=== PATIENT | female | born 1940 | race Caucasian/White ===

== ENCOUNTER 2024-04-01 18:10 | Emergency (ER) | payer BC, SELFPAY ==
--- NOTE | 2024-04-01 18:13 | ED.GENADULT ---
HPI - General Adult General Chief complaint: Cough Stated complaint: respiratory infection Time Seen by Provider: 04/01/24 18:14 History of Present Illness HPI narrative: Pt states she has mucous buildup and fluid in her chest. Pt went to the clinic today and they recommended being seen in the ER. Pt states she has a productive cough with green tinged sputum, and has been fatigued. Pt has taken mucinex and felt it helped slightly. 83-year-old woman presenting to the emergency department with concern of cough and shortness of breath. Was seen initially in Urgent Care recommended to be evaluated in the emergency department due to persistent dyspnea. Did receive a DuoNeb there. Chest x-ray was done as well and absent any infiltrative process or other indication of cardiopulmonary disease. Has been sick about a week. Describes what I think are jags of coughing and thick mucus. Has been taking Mucinex and may have helped a little bit. She did measure a ?fever? up to 100 last a few days ago. Admittedly she is worse today than she was a couple days ago. Denies a history of heart failure or asthma/reactive airway or COPD. Remote smoking. No particular exposures. Does not look as though has been swabbed for COVID. Related Data Home Medications ?Medication ?Instructions ?Recorded ?Confirmed amlodipine 10 mg tablet 10 mg PO DAILY 04/01/24 04/01/24 apixaban 2.5 mg tablet (Eliquis) 2.5 mg PO BID 04/01/24 04/01/24 rosuvastatin 20 mg tablet 20 mg PO QPM 04/01/24 04/01/24 sertraline 100 mg tablet 100 mg PO BID 04/01/24 04/01/24 trazodone 100 mg tablet 100 mg PO QPM 04/01/24 04/01/24 Previous Rx's ?Medication ?Instructions ?Recorded prednisone 20 mg tablet 40 mg (2 x 20 mg) PO DAILY 5 days 04/01/24 #10 tabs Allergies Allergy/AdvReac Type Severity Reaction Status Date / Time No Known Drug Allergies Allergy Verified 04/01/24 14:44 Review of Systems Status of ROS: Reports: 6 or more systems reviewed and unremarkable except as noted in History and below PFSH PFSH Social History Smoking Status: Former smoker What tobacco products do you use: cigarettes Smoking quit date/years: >15 years ago How often do you have a drink containing alcohol: 4 or more times a week AUDIT-C Alcohol total score: 4 Non-prescribed substance use: denies use Exam Narrative: Exam Narrative: Pleasant. NAD. Seems a little frustrated. Vaguely laryngitic. No stridor. Breathing easily. Little congested in the nasopharynx. Lungs with some trace left upper chest crepitus. Heart in regular rate and rhythm. Extremities are well perfused without edema. Const: Vital Signs, click to edit/add: Vital Signs - 24 hr 04/01/24 18:18 Temperature 97.2 F L Pulse Rate [Left] 81 Respiratory Rate 18 Blood Pressure [Ri ght Upper Arm] 126/85 Pulse Oximetry 94 Oxygen Delivery Me thod Room Air Documenting provider has reviewed patient's vital signs: yes Course Vital Signs Vital signs: Initial Vital Signs Temperature 97.2 F L 04/01/24 18:18 Temperature Source Temporal Artery Scan 04/01/24 18:18 Pulse Rate 81 04/01/24 18:18 Respiratory Rate 18 04/01/24 18:18 Blood Pressure 126/85 04/01/24 18:18 Blood Pressure Mean 98 04/01/24 18:18 Blood Pressure Position Sitting 04/01/24 18:18 Pulse Oximetry 94 04/01/24 18:18 Oxygen Delivery Method Room Air 04/01/24 18:18 Vital Signs Temperature 97.2 F L 04/01/24 18:18 Pulse Rate 81 04/01/24 18:18 Respiratory Rate 18 04/01/24 18:18 Blood Pressure 126/85 04/01/24 18:18 Pulse Oximetry 94 04/01/24 18:18 Oxygen Delivery Method Room Air 04/01/24 18:18 Temperature 97.2 F L 04/01/24 18:18 Pulse Rate 68 04/01/24 19:57 Respiratory Rate 16 04/01/24 19:57 Blood Pressure 149/90 H 04/01/24 19:57 Pulse Oximetry 96 04/01/24 19:57 Oxygen Delivery Method Room Air 04/01/24 19:57 Medical Decision Making MDM Narrative Medical decision making narrative: Seems to be having a slowly resolving URI. She is frustrated. I think has been describing some jags of coughing. Try to decongest. Can certainly look for pneumonia with chest x-ray. Otherwise screen for COVID, influenza. Would give some ice chips. Consider anesthetic spray. Chest x-ray reviewed by me looks to be without infiltrate. Radiology over-read as below Two view(s) of the chest. Comparison: None available. Findings: Normal size of the cardiac silhouette. Tortuous descending thoracic aorta with mild atherosclerotic calcifications. Lungs are well inflated. No focal consolidation. No pleural effusion or pneumothorax. No acute osseous abnormality identified. Chronic appearing mild superior endplate compression deformity of an upper lumbar vertebral body, likely L2. Impression: No acute cardiopulmonary abnormality identified. Swabs are negative Overall well during time in the ER. She was anxious to leave. See patient discharge plan for further discussion Medical Records Medical records reviewed: Yes I reviewed the patient's medical records Lab Data Lab results reviewed: Yes I reviewed the patient's lab results Labs: Lab Results 04/01/24 Range/Units 18:35 SARS-CoV-2 (PCR) Negative SARS-CoV-2 (Negative) Influenza Type A (PCR) Negative PCR FLU A (Negative) Influenza Type B (PCR) Negative PCR FLU B (Negative) RSV (PCR) Negative PCR RSV (Negative) Discharge Plan Discharge Clinical Impression: Cough, URI (upper respiratory infection) Patient Disposition: Home, Self-Care Condition: Improved Additional Instructions: Continue to focus on hydration. Sleep with head of bed elevated/recliner. I think some of your cough is caused by postnasal drip. With that in mind might benefit from pseudoephedrine as a decongestant. This is available [id number]. Menthol vapors might be helpful. Sucking on ice chips can help with that irritation that can contribute to jags of coughing. Consider also anesthetic throat sprays or lozenges like Chloraseptic or Sucrets. Will be prescribing prednisone from [facility]. This is the anti-inflammatory I was talking about that might decrease your ?muck production. Prescriptions: New prednisone 20 mg tablet 40 mg PO DAILY 5 Days Qty: 10 0RF No Action sertraline 100 mg tablet 100 mg PO BID amlodipine 10 mg tablet 10 mg PO DAILY rosuvastatin 20 mg tablet 20 mg PO QPM trazodone 100 mg tablet 100 mg PO QPM Eliquis 2.5 mg tablet 2.5 mg PO BID Follow Up/Referrals: Provider,Not a Local [Primary Care Provider] - Stand Alone Forms: MyHealth Info Instructions
[2024-04-01 18:18] VITALS: BP 126/85; PULSE 81; RESP 18; TEMP 36.2; O2SAT 94; BMI 23.0
[2024-04-01 19:21] LABS: PCR FLU A Negative PCR FLU A (Negative); PCR FLU B Negative PCR FLU B (Negative); PCR RSV Negative PCR RSV (Negative); SARS PCR* Negative SARS-CoV-2 (Negative)
[2024-04-01 19:57] VITALS: BP 149/90; PULSE 68; RESP 16; O2SAT 96
== END 2024-04-01 20:11 | disposition home or self-care (01) ==
PROVIDERS: Emergency Provider Family Medicine
DX: J06.9 Acute upper respiratory infection, unspecified (principal)
CPT/HCPCS: 87631; 99283; 99284